=== PATIENT | male | born 1965 | race Asian ===

== ENCOUNTER 2018-01-03 23:10 | Emergency (ER) | payer SELFPAY ==
[~2018-01-03] VITALS: Ht 172.7 cm; Wt 79.5 kg
[2018-01-03 23:12] VITALS: BP 152/98
== END 2018-01-04 00:33 | disposition left against medical advice (07) ==
LOC: EMS 23:12
DX: Z53.21 Procedure and treatment not carried out due to patient leaving prior to being seen by health care provider (principal)